=== PATIENT | female | born 1950 | race Caucasian/White ===

== ENCOUNTER 2021-01-05 11:03 | Outpatient (CLI) | payer MEDICARE ==
[2021-01-05] MEDS ORDERED: tums PO (11:44)
[2021-01-05] MEDS ORDERED: zinc PO (11:44)
[2021-01-05] MEDS ORDERED: L.AC1CAP6 PO (11:44)
[2021-01-05] MEDS ORDERED: ACET650S21 PO (11:44)
[2021-01-05] MEDS ORDERED: quercetin PO (11:44)
[2021-01-05] MEDS ORDERED: CETI-237 PO (11:44)
[2021-01-05] MEDS ORDERED: VALA500T4 PO (11:44)
[2021-01-05] MEDS ORDERED: ASCO100018 PO (11:44)
[2021-01-05] MEDS ORDERED: LIOT5TAB11 PO (11:44)
[2021-01-05] MEDS ORDERED: ESOM40CA PO (11:44)
[2021-01-05] MEDS ORDERED: AMOX-291 PO (11:44)
[2021-01-05] MEDS ORDERED: MULT-658 PO (11:44)
[2021-01-05] MEDS ORDERED: [UNRECOGNIZED DRUG - OTHER] PO (11:44)
[2021-01-05] MEDS ORDERED: LEVO112T2 PO (11:44)
[2021-01-05] MEDS ORDERED: CHOL10003 PO (11:44)
== END 2021-01-05 23:59 | disposition home or self-care (01) ==
LOC: STAR 11:03
PROVIDERS: ATTEND Thoracic Surgery (Cardiothoracic Vascular Surgery)
DX: Z01.812 Encounter for preprocedural laboratory examination (principal); Z20.822 Contact with and (suspected) exposure to COVID-19; K21.9 Gastro-esophageal reflux disease without esophagitis; I25.2 Old myocardial infarction
CPT/HCPCS: 87635; 93005